=== PATIENT | female | born 1935 | race Caucasian/White ===

== ENCOUNTER 2018-05-28 12:25 | Emergency (ER) | payer OTHER ==
[~2018-05-28] VITALS: Ht 157.5 cm; Wt 80.3 kg
[~2018-05-28 12:25] MED LIST: AVALIDE 150-12.1 TA1 PO; JANUMET 50-1,1 UDTAB PO; PANADOL EXTRA500 MG PO
[2018-05-28] MEDS ORDERED: METFORMIN HCL500 MG PO (13:19)
[2018-05-28] MEDS ORDERED: ATENOLOL50 MG PO (13:20)
[2018-05-28] MEDS ORDERED: LISINOPRIL10 MG PO (13:20)
== END 2018-05-28 18:55 | disposition home or self-care (01) ==
LOC: ER 12:25
DX: B34.9 Viral infection, unspecified (principal); N39.0 Urinary tract infection, site not specified